=== PATIENT | male | born 1965 | race Caucasian/White ===

== ENCOUNTER 2023-06-13 09:10 | Day surgery (SDC) | payer OTHER ==
[~2023-06-13] VITALS: Ht 180.3 cm; Wt 95.3 kg
[~2023-06-13 09:10] MED LIST: B121000 MC1 PO; FOLIC ACID1 MG PO; IRON (FERROUS S50 MG PO; VIT C/BIOFLV1000 MG PO
[2023-06-13] MEDS ORDERED: ATIVAN0.5 MG PO (10:57)
[2023-06-13 13:17] VITALS: BP 150/82
== END 2023-06-13 13:30 | disposition home or self-care (01) ==
LOC: ENDO 09:10
PROVIDERS: ATTEND Internal Medicine Gastroenterology
DX: D50.9 Iron deficiency anemia, unspecified (principal); K64.8 Other hemorrhoids; K57.30 Diverticulosis of large intestine without perforation or abscess without bleeding; K63.5 Polyp of colon; D12.3 Benign neoplasm of transverse colon; K29.50 Unspecified chronic gastritis without bleeding; B96.81 Helicobacter pylori [H. pylori] as the cause of diseases classified elsewhere